=== PATIENT | female | born 1975 | race Asian ===

== ENCOUNTER 2024-09-09 11:22 | Emergency (ER) | payer MEDICAID, SELFPAY ==
[2024-09-09 11:32] VITALS: PULSE 75; RESP 16; O2SAT 99
[2024-09-09 11:35] VITALS: BP 135/85; PULSE 79; RESP 18; TEMP 36.4; O2SAT 96
--- NOTE | 2024-09-09 11:43 | EKG_ITS ---
[facility] (Formerly [facility]) Test Date: 2024-09-09 Pat Name: MONICA CABRAL Department: Room: - Gender: Female Financial Investigator: : 1975 Requested By: Ludivina De Order Number: [id number] Reading MD: Ludivina De Measurements Intervals [place] Rate: 67 P: 36 WA: 200 QRS: 18 QRSD: 94 T: 45 QT: 421 QTc: 447 Interpretive Statements SINUS RHYTHM No previous ECG available for comparison /store/S0/[id number]/ecg/[id number].pdf
--- NOTE | 2024-09-09 11:50 | XR_ITS ---
Examination: CT abdomen and pelvis without contrast. Coronal 3-D reconstructions. Sagittal 2-D reconstructions. Date and time of exam:September 09, 2024 1312 hrs. Indications: Left flank pain abdominal pain onset today Comparison: November 20, 2022 CTDI: vol (mGy): 8.99 DLP: (mGycm): 513 Technique: Axial images of the abdomen have been obtained, 3 mm slice thickness Intravenous contrast material has not been administered. Low dose protocols were performed. One or more of the following dose reduction techniques were used; automated exposure control, adjustment of the mA and/or KV according to patient size, use of iterative reconstruction technique. Findings: No focal liver or splenic lesions No gallstones No pancreatic or adrenal mass Mild left hydronephrosis secondary to 5 mm mid left ureteral calculus Septated right adnexal cystic mass 4 cm No bladder mass Impression: Mild left hydronephrosis secondary to 5 mm mid left ureteral calculus Recommend pelvic sonography to assess 4 centimeter septated right adnexal cystic mass
--- NOTE | 2024-09-09 11:51 | PD.EDRME ---
Rapid Medical Screening Exam E Arrival date/time: 09/09/24 11:22 49-year-old female with no known medical history presents to the emergency room with a chief complaint of left lower quadrant abdominal pain and left-sided flank pain x 1 day. Patient states she was at the clinic and felt like she was going to pass out due to the pain. I have greeted and performed a focused initial assessment of this patient. A comprehensive ED assessment and evaluation of the patient, analysis of all test results, and completion of the medical decision making process will be conducted by additional ED providers. Chief Complaint: Abdominal Pain Time Seen by Provider: 09/09/24 11:24 Vital signs: Vital Signs Temperature 97.6 F 09/09/24 11:35 Pulse Rate 79 09/09/24 11:35 Respiratory Rate 18 09/09/24 11:35 Blood Pressure 135/85 H 09/09/24 11:35 Pulse Oximetry (%) 96 09/09/24 11:35 Oxygen Delivery Method Room Air 09/09/24 11:35 Vital signs reviewed by provider: Yes
[2024-09-09 11:56] VITALS: BP 103/66; PULSE 62; RESP 18; TEMP 36.4; O2SAT 96; BMI 28.9
[2024-09-09 12:22] LABS: Basophils # (Auto) 0.1 Thou/mm3 (0.0-0.2); Basophils % (Auto) 1 % (0-2.5); Eosinophils # (Auto) 0.1 Thou/mm3 (0.0-0.5); Eosinophils % (Auto) 1 % (0-10); Hematocrit 39.2 % (36.0-46.0); Hemoglobin 11.7 g/dL (12.0-16.0); Immature Granulocytes % (Auto) 1 % (0-0); Lymphocytes # (Auto) 2.8 Thou/mm3 (1.0-4.8); Lymphocytes % (Auto) 16 % (10-50); Mean Corpuscular HGB Conc 29.8 g/dl (31.0-37.0); Mean Corpuscular Hemoglobin 19.7 pg (25.0-35.0); Mean Corpuscular Volume 66 fL (80-100); Monocytes # (Auto) 0.6 Thou/mm3 (0.0-0.8); Monocytes % (Auto) 3 % (0-12); Neutrophils # (Auto) 13.5 Thou/mm3 (1.8-7.7); Neutrophils % (Auto) 79 % (37-80); Nucleated Red Blood Cell % 0 /100 WBC (0); Platelet Count 348 Thou/mm3 (140-440); Red Blood Count 5.93 Miln/mm3 (4.00-5.20); White Blood Count 17.1 Thou/mm3 (3.6-11.0)
[2024-09-09] MEDS: KETOROLAC INJ 60 MG/2 ML VIAL 30 MG IM (12:33)
[2024-09-09] MEDS: ONDANSETRON ODT 4 MG TABRAP PO (12:33)
[2024-09-09 12:38] LABS: Alanine Aminotransferase 11 U/L (10-49); Albumin, Serum 4.2 gm/dL (3.5-5.0); Albumin/Globulin Ratio 1.6 (1.2-2.2); Alkaline Phosphatase 66 U/L (46-116); Anion Gap 9 (7-16); Aspartate Amino Transferase 18 U/L (0-34); BUN/Creatinine Ratio 20 Ratio (12-20); Bilirubin,Total 0.8 mg/dL (0.3-1.2); Blood Urea Nitrogen 12 mg/dL (9-23); Calcium 8.9 mg/dL (8.3-10.6); Calcium (Corrected) 8.9 mg/dL (8.5-10.1); Carbon Dioxide 23.2 mMol/L (20.0-31.0); Chloride 103 mMol/L (98-107); Creatinine (Component) 0.6 mg/dL (0.6-1.3); Estimated Creatinine Clearance 103.3 mL/min (>60); Globulin 2.7 gm/dL (2.3-3.5); Glucose 129 mg/dL (74-106); Lipase 31 U/L (12-53); Osmolality,Calculated 271 (275-295); Potassium 4.2 mMol/L (3.4-5.1); Sodium 135 mMol/L (136-145); Total Protein 6.9 gm/dL (5.7-8.2); eGFR > 60 See Note
[2024-09-09 12:45] LABS: Collection Type, Urine Clean Catch
[2024-09-09 12:54] LABS: HCG Qualitative,Urine Negative
[2024-09-09 13:04] LABS: Bacteria,Urine 4+; Bilirubin,Urine Negative (Negative); Blood,Urine 3+ (Negative); Color,Urine Yellow (Lt Yel-Yel); Glucose, Urine Negative (Negative); Ketones,Urine Negative (Negative); Leukocyte Esterase,Urine Negative (Negative); Nitrite,Urine Negative (Negative); PH,Urine 6.5 (5.0-7.0); Protein,Urine 2+ (Neg - Trace); RBC,Urine 860 /hpf (0-3); Specific Gravity,Urine 1.035 (1.001-1.035); Squamous Epithelial Cell,Urine 43 /hpf (0-5); Urobilinogen,Urine Negative mg/dL (0.0-1.0); WBC,Urine 11 /hpf (0-5)
[2024-09-09 13:08] LABS: Clarity,Urine Turbid (Clear/Hazy)
[2024-09-09 13:27] LABS: Path Review Blood Smear Sent to Pathologist
--- NOTE | 2024-09-09 15:10 | EDNOTE_ITS ---
ED Abdominal Pain RME/HPI General Chief Complaint: Abdominal Pain Stated complaint: ABDOMINAL PAIN Time seen by provider: 09/09/24 11:24 Arrival date/time: 09/09/24 11:22 RME / HPI RME / HPI narrative: 09/09/24 11:22 49-year-old female with no known medical history presents to the emergency room with a chief complaint of left lower quadrant abdominal pain and left-sided flank pain x 1 day. Patient states she was at the clinic and felt like she was going to pass out due to the pain. I have greeted and performed a focused initial assessment of this patient. A comprehensive ED assessment and evaluation of the patient, analysis of all test results, and completion of the medical decision making process will be conducted by additional ED providers. DR. MEYER MAIN ED EVALUATION: 49 year old female with past medical history significant for kidney stones, hypertension, section presents to the Emergency Department accompanied by her with complaint of left flank pain. Pain is described as aching and rated moderate in severity. Associated symptoms include nausea, vomiting this morning, and dysuria. No fevers, chills, or sweating. Related Data Home Medications ?Medication ?Instructions ?Recorded ?Confirmed PNV CMB#95/FERROUS FUMARATE/FA 1 tab PO QDAY #0 tabs 0 10/14/15 ( MULTIVITAMINS TABLET) Previous Rx's ?Medication ?Instructions ?Recorded HYDROCODONE BIT/ACETAMINOPHEN 1 tab PO Q6HR PRN Patien t rated 01/13/16 (Vicodin 5/300) pain 7 to 8 #10 tabs Labetalol Hcl * (TRANDATE *) 100 mg PO BID #60 tabs cephalexin 500 mg capsule (Keflex) 500 mg PO QID #40 c aps 01/13/16 ibuprofen 400 mg tablet 600 mg (1.5 x 400 mg) PO Q8H R PRN 01/13/16 PAIN SCALE 4-6 (Moderate #28 tabs ibuprofen 600 mg tablet 600 mg PO Q8H PRN pain #14 t abs 07/05/22 ondansetron 4 mg disintegrating 4 mg PO Q8H PRN nausea and 07/05/22 tablet vomiting #10 tabs tamsulosin 0.4 mg capsule 0.4 mg PO QDAY #7 caps 07/05 hydrocodone 5 mg-acetaminophen 325 1 tab PO Q6H PRN pa in #14 tabs 11/20/22 mg tablet ondansetron 8 mg disintegrating 8 mg PO Q8H PRN nausea and 11/20/22 tablet vomiting #20 tabs cephalexin 500 mg capsule 500 mg PO TID #15 caps 09/09 ibuprofen 600 mg tablet 600 mg PO Q6H PRN pain #30 t abs 09/09/24 tamsulosin 0.4 mg capsule 0.4 mg PO QDAY #14 caps 08/29 08/25 Allergies Allergy/AdvReac Type Severity Reaction Status Date / Time No Known Allergies Allergy Verified 09/09/24 11:38 Review of Systems Review of Systems Systems Reviewed: All systems reviewed, normal except as documented Narrative Review of Systems: GEN: No fever, no chills, no weight loss EYES: No discharge, no visual changes, no pain HEENT: No ear pain, no congestion, no sore throat PULM: No shortness of breath, no cough, no congestion CV: No chest pain, no dyspnea on exertion, no palpitations GI: + nausea, + vomiting, no diarrhea, + left flank pain, no constipation : No frequency, no urgency, + dysuria MUSC/SKEL: No joint pain, no back pain SKIN: No rash PSYCH: No hallucinations, no depression HEME/LYMPH: No easy bleeding or bruising tendencies NEURO: No weakness, no headache Past Medical History Past Medical History CARDIAC: Positive Hypertension Social History SMOKING STATUS: Never smoker SECOND HAND EXPOSURE: No SUBSTANCE USE: does not use ALCOHOL: Never ED Exam Narrative Physical exam: GENERAL APPEARANCE: alert and oriented x 4, well-developed, well-nourished, no acute distress VITALS: All vitals were reviewed and the pulse ox is 96% on room air, which is normal according to my interpretation. HEENT: Normocephalic, atraumatic; pupils equal, round, reactive to light; EOMI; mucous membranes pink, moist; oropharynx clear NECK: Supple LUNGS: CTABL; no wheezes, no rales, no rhonchi HEART: Regular rate, regular rhythm; normal S1, S2; no murmurs ABDOMEN: non distended; normal BS; there is mild left sided abdominal pain, no rebound; no masses, no organomegaly, no hernia BACK: no CVA tenderness EXTREMITIES: atraumatic; no edema NEUROLOGIC: awake; alert and oriented x4; cranial nerves II-XII grossly intact; no focal sensory or motor deficits PSYCHIATRIC: appropriate mood and affect SKIN: warm, dry, normal color; no rashes Course Quality Measures none Orders Category Date Time Status CT abdomen pelvis wo con Stat Exams 09/09/24 11:50 Completed CBC Stat Lab 09/09/24 12:06 Completed CMP [Comprehensive Metabolic Panel] Stat Lab 09/09/24 12:06 Completed HCG Qualitative,Urine Stat Lab 09/09/24 12:40 Completed Lipase Stat Lab 09/09/24 12:06 Completed Path Review Blood Smear Stat Lab 09/09/24 12:06 Completed UA [Urinalysis] Stat Lab 09/09/24 12:40 Completed Urine Culture Stat Lab 09/09/24 12:40 Received Ketorolac Inj [Toradol Inj] Med 09/09/24 11:50 Discontinued 30 mg IM X1 ONE Ondansetron Odt [Zofran Odt] Med 09/09/24 11:50 Discontinued 4 mg PO X1 ONE Sodium Chloride 0.9% 1000 ml [Ns] 1,000 ml Med 09/09/24 14:22 Discontinued IV 999 mls/hr Tamsulosin HCl [Flomax] Med 09/09/24 14:22 Discontinued 0.4 mg PO X1 ONE cefTRIAXone [Rocephin] 1,000 mg Med 09/09/24 14:22 Discontinued SODIUM CHLORIDE 0.9% (Popper) [Ns 0.9% (P)] 50 ml IV X1 EKG (RT) Stat RT 09/09/24 11:43 Draft Vital Signs Vital signs: Vital Signs Temperature 97.6 F 09/09/24 11:35 Pulse Rate 79 09/09/24 11:35 Respiratory Rate 18 09/09/24 11:35 Blood Pressure 135/85 H 09/09/24 11:35 Pulse Oximetry (%) 96 09/09/24 11:35 Oxygen Delivery Method Room Air 09/09/24 11:35 Procedures -ED EKG Interpretation #1: Date of EK09/09/24 Time of EK:12 Rate: 67 Interpretation: Interpreted by me Additional EKG comment: sinus rhythm, rate 67, borderline wander, slight elevation in leads 1 and 2 Abdominal Pain MDM MDM Narrative MDM Narrative:: I, Tricia Silva am scribing for and in the presence of Dr. Meyer. Patient data External records reviewed:: [facility] previous records (Reviewed last ED visit dated 11/20/22 discharged with the following: Calculus of kidney and ureter) Clinical information provided by:: patient Social determinants that could affect healthcare access:: none Patient has the following chronic illnesses:: kidney stones, hypertension, section How is presenting disease/condition affected by chronic disease/condition?: caused by Evaluation data The following diagnostics were reviewed and interpreted by me:: lab results, radiology exam(s) and EKG tracing(s) (EKG#1: EKG at 1155 hours. Interpreted by me: sinus rhythm, rate 67, borderline wander, slight elevation in leads 1 and 2) Lab and/or radiology exams considered but not ordered:: none Interpretation Summary: Procedure(s): CT abdomen pelvis wo con Accession Number(s): [id number] cc: Gabino Barraza; Rosas Underwood MD; Maynor Sinha MD~ Examination: CT abdomen and pelvis without contrast. Coronal 3-D reconstructions. Sagittal 2-D reconstructions. Date and time of exam:September 09, 2024 1312 hrs. Indications: Left flank pain abdominal pain onset today Comparison: November 20, 2022 CTDI: vol (mGy): 8.99 DLP: (mGycm): 513 Technique: Axial images of the abdomen have been obtained, 3 mm slice thickness Intravenous contrast material has not been administered. Low dose protocols were performed. One or more of the following dose reduction techniques were used; automated exposure control, adjustment of the mA and/or KV according to patient size, use of iterative reconstruction technique. Findings: No focal liver or splenic lesions No gallstones No pancreatic or adrenal mass Mild left hydronephrosis secondary to 5 mm mid left ureteral calculus Septated right adnexal cystic mass 4 cm No bladder mass Impression: Mild left hydronephrosis secondary to 5 mm mid left ureteral calculus Recommend pelvic sonography to assess 4 centimeter septated right adnexal cystic mass Dictated By: Maynor Sinha MD Medications / Prescriptions Medications or Prescriptions considered but not ordered:: none Medication administrations:: Medication Administration History Discontinued Medications Sodium Chloride (Ns) 1,000 mls @ 999 mls/hr IV .Q1H1M ONE Stop: 09/09/24 15:22 Last Admin: 09/09/24 15:36 Dose: 999 mls/hr Documented By: JESSY Ceftriaxone Sodium 1,000 mg/ (Sodium Chloride) 50 mls @ 100 mls/hr IV X1 ONE Stop: 09/09/24 14:51 Last Admin: 09/09/24 15:36 Dose: 100 mls/hr Documented By: JESSY Ketorolac Tromethamine (Ketorolac Inj 60 Mg/2 Ml Vial) 30 mg IM X1 ONE Stop: 09/09/24 11:51 Last Admin: 09/09/24 12:33 Dose: 30 mg Documented By: JESSY Ondansetron HCl (Ondansetron Odt 4 Mg Tabrap) 4 mg PO X1 ONE; Protocol Stop: 09/09/24 11:51 Last Admin: 09/09/24 12:33 Dose: 4 mg Documented By: JESSY Tamsulosin HCl (Tamsulosin Hcl 0.4 Mg Capsule) 0.4 mg PO X1 ONE Stop: 09/09/24 14:23 Last Admin: 09/09/24 15:28 Dose: 0.4 mg Documented By: JESSY see above Consultations Consultation(s) initiated? (list below): No Diagnosis Differential diagnosis abdominal pain: abdominal pain, calculus of kidney, diverticulitis, gastroenteritis and pancreatitis Most likely diagnosis given after review of the tests above:: UTI Ureteral stone Admission Indicated Admission indicated?: not indicated Admission Request Was there a request for admission?: No Disposition Plan Disposition Plan: Discharge Discharge Attestation Discharge Attestation: The patient and all family members were given an opportunity to ask questions and understood the discharge instructions. Discharge instructions specifically effects, indications for sooner follow up or return to the emergency department, and the expected course of current diagnosis. Patient condition: Stable Discharge Plan Plan Patient Disposition: HOME (Self Care) Prescriptions/Referrals Prescriptions/Med Rec: New cephalexin 500 mg capsule 500 mg PO TID Qty: 15 0RF tamsulosin 0.4 mg capsule 0.4 mg PO QDAY Qty: 14 0RF ibuprofen 600 mg tablet 600 mg PO Q6H PRN (Reason: pain) Qty: 30 0RF No Action PNV CMB#95/FERROUS FUMARATE/FA ( MULTIVITAMINS TABLET) 1 EACH tablet 1 tab PO QDAY Qty: 0 cephalexin [Keflex] 500 MG capsule 500 mg PO QID Qty: 40 0RF ibuprofen 400 MG tablet 600 mg PO Q8HR PRN (Reason: PAIN SCALE 4-6 (Moderate) Qty: 28 0RF HYDROCODONE BIT/ACETAMINOPHEN (Vicodin 5/300) 1 TAB tablet 1 tab PO Q6HR PRN (Reason: Patient rated pain 7 to 8) Qty: 10 0RF Labetalol Hcl * (TRANDATE *) 100 MG tablet 100 mg PO BID Qty: 60 0RF ibuprofen 600 mg tablet 600 mg PO Q8H PRN (Reason: pain) Qty: 14 0RF tamsulosin 0.4 mg capsule 0.4 mg PO QDAY Qty: 7 0RF ondansetron 4 mg tablet,disintegrating 4 mg PO Q8H PRN (Reason: nausea and vomiting) Qty: 10 0RF hydrocodone-acetaminophen 5-325 mg tablet 1 tab PO Q6H MDD 4 PRN (Reason: pain) Qty: 14 0RF ondansetron 8 mg tablet,disintegrating 8 mg PO Q8H PRN (Reason: nausea and vomiting) Qty: 20 0RF Referrals: Rosas Underwood MD [Primary Care Provider] - In 1 week Problem List Clinical Impression: UTI (urinary tract infection), Ureteral stone Patient/Caregiver Discharge Instructions Education Materials: ED CYSTITIS Female Adult, ED Kidney Stone w/ Colic Print Language: Swiss Stand Alone Forms: [facility] Award Info., Patient Portal Info Letter
[2024-09-09] MEDS: TAMSULOSIN HCL 0.4 MG CAPSULE PO (15:28)
[2024-09-09 15:34] VITALS: BP 138/89; PULSE 66; RESP 18; TEMP 36.4; O2SAT 98
[2024-09-09] MEDS: SODIUM CHLORIDE 0.9% 1000 ML 1,000 ML 999 ML IV (15:36)
[2024-09-09] MEDS: cefTRIAXone 1,000 MG in SODIUM CHLORIDE 0.9% (Popper) 50 ML 100 MG IV (15:36)
[2024-09-09 17:45] VITALS: BP 129/82; PULSE 72; RESP 18; TEMP 36.6; O2SAT 98
== END 2024-09-09 18:17 | disposition home or self-care (01) ==
PROVIDERS: Nurse Practitioner Family; Emergency Provider Emergency Medicine; PCP Family Medicine
DX: N13.6 Pyonephrosis (principal); I10 Essential (primary) hypertension
CPT/HCPCS: 36415; 74176; 80053; 81001; 81025; 83690; 85025; 87086; 93005; 96372; 99284; J0696; J1885; J7030; J7050; Q0162; A9270